=== PATIENT | female | born 2000 | race Caucasian/White ===

== ENCOUNTER 2025-02-07 21:31 | Emergency (ER) | payer SELFPAY ==
[~2025-02-07] VITALS: Ht 160 cm; Wt 72.6 kg
[2025-02-07 22:57] VITALS: BP 126/81; TEMP 98.1
[2025-02-08 00:47] LABS: PREGNANCY TEST URINE QUAL NEGATIVE (NEGATIVE)
[2025-02-08] MEDS ORDERED: IBUP-1490 PO (02:10)
[2025-02-08 02:14] VITALS: O2SAT 99
== END 2025-02-08 02:14 | disposition home or self-care (01) ==
LOC: ER 21:34
DX: S39.012A Strain of muscle, fascia and tendon of lower back, initial encounter (principal); S13.4XXA Sprain of ligaments of cervical spine, initial encounter; V43.62XA Car passenger injured in collision with other type car in traffic accident, initial encounter; Y93.89 Activity, other specified; Y92.89 Other specified places as the place of occurrence of the external cause; Y99.8 Other external cause status
CPT/HCPCS: 72125-TC; 72131-TC; 84703-TC